=== PATIENT | male | born 1950 | race African-American/Black ===

== ENCOUNTER 2018-01-08 14:23 | Emergency (ER) | payer MEDICARE, MEDICAID ==
[~2018-01-08] VITALS: Ht 172.7 cm; Wt 75.0 kg
[2018-01-08 14:47] VITALS: BP 113/70
[2018-01-08] MEDS ORDERED: DIPHENHYDRAMINE 50MG CAPSULE PO ONE (15:45)
[2018-01-08] MEDS ORDERED: PREDNISONE 20MG TABLET PO ONE (15:45)
== END 2018-01-08 20:21 | disposition home or self-care (01) ==
LOC: ER 20:05
DX: L50.9 Urticaria, unspecified (principal); I10 Essential (primary) hypertension
CPT/HCPCS: 99283; J7512; Q0163